=== PATIENT | male | born 1970 | race Hispanic/Latino ===

== ENCOUNTER 2017-02-03 12:44 | Emergency (ER) | payer MEDICAID, OTHER ==
[2017-02-03 12:52] VITALS: BP 147/85; PULSE 85; RESP 18; TEMP 97.8; O2SAT 96
--- NOTE | 2017-02-03 13:35 | C.PDOC ---
History Of Present Illness A 46 year old male, whose past medical history includes kidney stones, presents to the emergency department for right sided groin pain, which began 2-3 days after he had a right ureteral stent placed for a 1.1 cm right ureteral stone, which was placed at [facility]. The patient reports he was inpatient for 2 days and on the 3rd day that is when he had his stent put in. The patient was advised to have a outpatient procedure with his urologist. The patient questions as to why he did not have an emergency lithotripsy procedure instead and he would like a second opinion. The patient denies any chest pain, shortness of breath, fever, abdominal pain, or any other complaints at this time. Mr. Peña admits to being homeless and living in a homeless fpc. He has a history of ADD (off medication) and is unemployed and is seeking outpatient resources for psychiatric mediations, employment training, and housing. The patient also admits to having a learning disability throughout high school, but he did graduate. He states that he finds it difficult to maintaining employment and he is . Time Seen by Provider: 02/03/17 13:02 Chief Complaint (Nursing): Male Genitourinary History Per: Patient History/Exam Limitations: no limitations Onset/Duration Of Symptoms: Days (x 3 days ) Current Symptoms Are (Timing): Still Present Past Medical History Reviewed: Historical Data, Nursing Documentation, Vital Signs Vital Signs: Last Vital Signs Temp 97.8 F 02/03/17 12:47 Pulse 85 02/03/17 12:47 Resp 18 02/03/17 13:44 BP 147/85 02/03/17 12:47 Pulse Ox 96 02/03/17 13:36 - Medical History PMH: Kidney Stones Family History: States: No Known Family Hx - Social History Hx Alcohol Use: Yes Hx Substance Use: No - Immunization History Hx Tetanus Toxoid Vaccination: No Hx Influenza Vaccination: No Hx Pneumococcal Vaccination: No Review Of Systems Except As Marked, All Systems Reviewed And Found Negative. Constitutional: Negative for: Fever Cardiovascular: Negative for: Chest Pain Respiratory: Negative for: Shortness of Breath Gastrointestinal: Negative for: Nausea, Abdominal Pain Musculoskeletal: Positive for: Other (right sided groin pain ) Physical Exam - Physical Exam Appears: Well, Non-toxic, No Acute Distress, Other (Obese) Skin: Normal Color, Warm, Dry Head: Atraumatic, Normacephalic Eye(s): bilateral: Normal Inspection, PERRL, EOMI Nose: Normal Throat: Normal Neck: Normal Cardiovascular: Rhythm Regular Respiratory: Normal Breath Sounds Gastrointestinal/Abdominal: Normal Exam Back: Normal Inspection Neurological/Psych: Oriented x3, Normal Speech, Normal Cognition, Other ( difficulty following along with conversation ) ED Course And Treatment O2 Sat by Pulse Oximetry: 96 Medical Decision Making Medical Decision Making: R ureteral stent placed @ [facility] 2 days ago, pt was unsatisfied he did not have emergent lithtrypsy, and has opt f/u with [facility] but with poor insight. Prefers to f/u w Urology, after [facility] in place later this week No acute s/s, no w/u indicated at this time. Homeless, decomensated ADD/ADHD, living @ Fpc/sleeping in [facility], [facility] [employer]rier's consult appreciated plan for continuing outpatient meds for ADD/Counseling/job-education placement. Progress Notes: I have explained the process to Mr. Peña by drawing out pictures of his recent procedure in detail step by step with instructions, the patient is still questionable to completely understanding. Disposition Doctor Will See Patient In The: Office Counseled Patient/Family Regarding: Studies Performed, Diagnosis - Disposition Referrals: [facility] [Outside] [facility] [Outside] [facility] [Outside] [facility] [Outside] Mac Noel MD [Staff Provider] - Disposition: HOME/ ROUTINE Disposition Time: 13:35 Condition: GOOD Additional Instructions: Ureteral Stones, R ureteral Stent in place 02/01/17 @ [facility]: Plan for stent removal and lithotrypsy as needed Follow up with Dr. Noel- Urology Microsystems Engineer- when your [facility] is in place. ADD/ADHD/Learning Disability: Disabled and medicated since childhood, off meds now, homeless Consider re-starting ADD Meds and Counseling for training/placement. No substance abuse issues. Instructions: Amphetamine/Dextroamphetamine (By mouth), Kidney Stones (ED) Forms: [employer] ([place]ar[place]anda) - Clinical Impression Clinical Impression: Retained ureteral stent, ADD (attention deficit disorder) without hyperactivity , Lives in homeless fpc - Scribe Statement The provider has reviewed the documentation as recorded by the Scribe Josie Sandoval All medical record entries made by the Scribe were at my direction and personally dictated by me. I have reviewed the chart and agree that the record accurately reflects my personal performance of the history, physical exam, medical decision making, and the department course for this patient. I have also personally directed, reviewed, and agree with the discharge instructions and disposition.
== END 2017-02-03 13:44 | disposition home or self-care (01) ==
LOC: C.ER 12:44
DX: F98.8 Other specified behavioral and emotional disorders with onset usually occurring in childhood and adolescence (principal); Z96.0 Presence of urogenital implants